=== PATIENT | male | born 1965 | race Caucasian/White ===

== ENCOUNTER 2020-07-17 09:35 | Emergency (ER) | payer OTHER ==
[2020-07-17] MEDS ORDERED: PREDNISONE 20 M20 MG PO (11:58)
[2020-07-17] MEDS ORDERED: PROAIR HFA8.5 GM INH (11:58)
== END 2020-07-17 12:30 | disposition home or self-care (01) ==
LOC: ER1 09:35
DX: J20.9 Acute bronchitis, unspecified (principal); Z88.5 Allergy status to narcotic agent; Z79.899 Other long term (current) drug therapy; Z20.822 Contact with and (suspected) exposure to COVID-19
CPT/HCPCS: 0240U; 71045; 87081; 87880; 99283

== ENCOUNTER 2020-08-02 08:22 | Emergency (ER) | payer OTHER ==
[~2020-08-02 08:22] MED LIST: PREDNISONE 20 M20 MG PO; PROAIR HFA8.5 GM INH
[2020-08-02 08:54] LABS: HEMOGLOBIN 14.8 gm/dl (14.0-17.5); RED BLOOD COUNT 5.01 M/UL (4.20-5.50); WHITE BLOOD COUNT 5.7 K/UL (4.5-11.0)
[2020-08-02 09:18] LABS: BUN/CREATININE RATIO 12 (0-10)
== END 2020-08-02 10:02 | disposition home or self-care (01) ==
LOC: ER1 08:22
PROVIDERS: Nurse Practitioner
DX: R20.2 Paresthesia of skin (principal); Z87.891 Personal history of nicotine dependence; Z88.5 Allergy status to narcotic agent; Z79.899 Other long term (current) drug therapy
CPT/HCPCS: 70450; 71045; 80053; 82550; 82553; 83735; 83874; 84484; 85025; 99284

== ENCOUNTER 2020-08-25 18:26 | Emergency (ER) | payer OTHER ==
[2020-08-25 19:34] LABS: HEMOGLOBIN 14.8 gm/dl (14.0-17.5); WHITE BLOOD COUNT 8.7 K/UL (4.5-11.0)
[2020-08-25 19:43] LABS: BUN/CREATININE RATIO 11 (0-10)
== END 2020-08-26 02:30 | disposition home or self-care (01) ==
LOC: ER1 18:26
PROVIDERS: Emergency Medicine
DX: S02.2XXA Fracture of nasal bones, initial encounter for closed fracture (principal); S51.012A Laceration without foreign body of left elbow, initial encounter; S42.001S Fracture of unspecified part of right clavicle, sequela; F10.129 Alcohol abuse with intoxication, unspecified; Y90.7 Blood alcohol level of 200-239 mg/100 ml; Z86.19 Personal history of other infectious and parasitic diseases
CPT/HCPCS: 12002; 70450; 70486; 71260; 72125; 73000; 73080; 73130; 80053; 80307; 81001; 82550; 82553; 83874; 84484; 85025; 93005; 99284; G0480; J7030; Q9967

== ENCOUNTER → 2021-07-30 | Outpatient (CLI) | payer OTHER | LOC: KOH-I 09:37 | DX: R74.01 Elevation of levels of liver transaminase levels (principal); K76.0 Fatty (change of) liver, not elsewhere classified | CPT/HCPCS: 76700 ==